=== PATIENT | female | born 1965 | race Caucasian/White ===

== ENCOUNTER 2019-05-05 09:39 | Emergency (ER) | payer MEDICAID ==
[~2019-05-05] VITALS: Ht 167.6 cm; Wt 76.0 kg
--- NOTE | 2019-05-05 09:59 | NUR ---
PT TAKES AMLODIPINE FOR HTN BUT DIDNT TAKE IT TODAY.
--- NOTE | 2019-05-05 10:00 | NUR ---
PT STATES HER LEFT ARM/SHOULDER IS PAINFUL TO THE TOUCH. TRIED TO GO TO MASSAGE THERAPIST BUT COULDNT TOLERATE. PAIN IS WORSE WHEN STANDING. BREATHING MAKES IT WORSE.
[2019-05-05] MEDS ORDERED: ketorolac tromethamine 15mg/ml inj. IV ONE (11:25)
[2019-05-05] MEDS ORDERED: LORazepam 2 mg/ml vial IV ONE (11:25)
[2019-05-05] MEDS ORDERED: morphine 4 MG/ML inj SYRINge IV ONE ×2 (11:25→13:50)
--- NOTE | 2019-05-05 13:04 | NUR ---
PT TAKEN TO MRI VIA W/C BY TECH.
--- NOTE | 2019-05-05 13:52 | NUR ---
PT REPORTING SEVERE ARM PAIN AFTER MRI AND REQUESTING PAIN MED. RECEIVED VO FROM DR. KANG FOR MORPHINE 4MG IV X 1
[2019-05-05] MEDS ORDERED: CYCL-1 PO (15:13)
[2019-05-05] MEDS ORDERED: HYDR-4353 PO (15:13)
[2019-05-05] MEDS ORDERED: METH4TAB3 PO (15:13)
[2019-05-05 15:38] VITALS: BP 140/90
--- NOTE | 2019-05-05 15:46 | NUR ---
PT REQUESTING A CHANGE IN HER DC RX, PT DOESNT LIKE THE CYCLOBENZAPRINE AND WANTS IT CHANGED TO ROBAXIN, NOTIFLang ARCE. PT WAITING WITH HER DAUGHTER WHO IS HER RIDE.
[2019-05-05] MEDS ORDERED: DIAZ5TAB PO (15:47)
--- NOTE | 2019-05-05 15:52 | NUR ---
DR KANG CHANGES RX TO VALIUM.
--- NOTE | 2019-05-05 15:52 | NUR ---
PT IS TAKEN OUT TO HER CAR VIA W/C BY [employer].
== END 2019-05-05 15:55 | disposition home or self-care (01) ==
LOC: ER 09:40
DX: M48.02 Spinal stenosis, cervical region (principal); M79.602 Pain in left arm; I10 Essential (primary) hypertension; M19.90 Unspecified osteoarthritis, unspecified site; Z56.0 Unemployment, unspecified; Z87.891 Personal history of nicotine dependence; Z90.710 Acquired absence of both cervix and uterus; Z88.1 Allergy status to other antibiotic agents; Z88.6 Allergy status to analgesic agent
CPT/HCPCS: 72141; 93005; 96374; 96375; 96376; 99284; J1885; J2060; J2270

== ENCOUNTER 2019-05-07 15:40 | Emergency (ER) | payer MEDICAID ==
[~2019-05-07] VITALS: Ht 167.6 cm; Wt 77.3 kg
[~2019-05-07 15:40] MED LIST: CYCL-1 PO; DIAZ5TAB PO; HYDR-4353 PO; METH4TAB3 PO
[2019-05-07] MEDS ORDERED: morphine 4 MG/ML inj SYRINge IM ONE (16:55)
--- NOTE | 2019-05-07 17:07 | NUR ---
PA Brady in with pt
[2019-05-07] MEDS ORDERED: ketorolac tromethamine 15mg/ml inj. IM ONE (17:25)
[2019-05-07] MEDS ORDERED: orphenadrine citrate 60mg/2ml inj. IM ONE (18:50)
[2019-05-07 19:37] VITALS: BP 145/95
== END 2019-05-07 19:38 | disposition home or self-care (01) ==
LOC: ER 15:40
DX: M25.512 Pain in left shoulder (principal); I10 Essential (primary) hypertension; M19.90 Unspecified osteoarthritis, unspecified site; F32.9 Major depressive disorder, single episode, unspecified; F10.99 Alcohol use, unspecified with unspecified alcohol-induced disorder; Z87.442 Personal history of urinary calculi; Z90.710 Acquired absence of both cervix and uterus; Z98.890 Other specified postprocedural states; Z56.0 Unemployment, unspecified; Z60.2 Problems related to living alone; Z88.1 Allergy status to other antibiotic agents; Z88.6 Allergy status to analgesic agent; Z88.8 Allergy status to other drugs, medicaments and biological substances; Z91.048 Other nonmedicinal substance allergy status; Z79.899 Other long term (current) drug therapy; Y90.9 Presence of alcohol in blood, level not specified
CPT/HCPCS: 96372; 99284; J1885; J2270; J2360